=== PATIENT | female | born 1985 | race Asian ===

== ENCOUNTER 2018-05-30 23:14 | Emergency (ER) | payer SELFPAY ==
[~2018-05-30] VITALS: Ht 160 cm; Wt 49.9 kg
[2018-05-30 23:44] VITALS: BP 138/69
--- NOTE | 2018-05-30 23:44 | NUR ---
ED Nurse Note: Pt states she went to travel ([facility]) and had some food there. Pt states she had stomach gas, and now she feel painful in stomach. Pain level 5/10, and she feels light fever. pt denies nausesa vomiting, and diarrhea
[2018-05-30] MEDS ORDERED: Lidocaine 2% Visc 15ml soln ORAL ONE (23:45)
[2018-05-30] MEDS ORDERED: Metoclopramide 10mg/2ml Inj IVP ONE (23:45)
[2018-05-30] MEDS ORDERED: Mylanta II UD 30ml ORAL ONE (23:45)
[2018-05-30] MEDS ORDERED: Isovue-300 100ml vial INJ PRN (23:45)
--- NOTE | 2018-05-30 23:45 | Emergency Room Report ---
History of Present Illness General Chief Complaint: Abdominal Pain Source: Patient Present Illness HPI Patient presents with complaints of 3 days of epigastric abdominal pain and pressure Denies any vomiting she had some mild nausea Reports of the pain started after eating She feels that she has low-grade fevers intermittently Denies any lower abdominal pain denies any trauma denies any dysuria or frequency Allergies: Coded Allergies: No Known Allergies (Unverified , 05/30/18) Patient History Past Medical History: see triage record Pertinent Family History: none Last Menstrual Period: May 14, 2018 Now: No Reviewed Nursing Documentation: PMH: Agreed; PSxH: Agreed Nursing Documentation-PMH Past Medical History: No Stated History Review of Systems All Other Systems: negative except mentioned in HPI Physical Exam Vital Signs Date Time Temp Pulse Resp B/P (MAP) Pulse Ox O2 Delivery O2 Flow Rate FiO2 05/30/18 23:26 98.1 81 18 138/69 98 Room Air Sp02 EP Interpretation: reviewed, normal General Appearance: well appearing, no apparent distress Head: normocephalic, atraumatic Eyes: bilateral eye PERRL, bilateral eye EOMI ENT: hearing grossly normal, normal pharynx, TMs + canals normal, uvula midline Neck: full range of motion, supple, no meningismus, no bony tend Respiratory: lungs clear, normal breath sounds, no rhonchi, no respiratory distress, no retraction, no accessory muscle use Cardiovascular #1: normal peripheral pulses, regular rate, rhythm, no edema, no gallop, no JVD, no murmur Gastrointestinal: normal bowel sounds, non tender - However points to the epigastric area for discomfort, soft, no mass, no organomegaly, non-distended, no guarding, no hernia, no pulsatile mass, no rebound Genitourinary: no CVA tenderness Musculoskeletal: normal inspection Neurologic: oriented x3, responsive, pediatric intensive physician III-XII nml as tested, motor strength/ tone normal, sensory intact Psychiatric: mood/affect normal Skin: normal color, no rash, warm/dry, palpation normal Lymphatic: normal inspection, no adenopathy Medical Decision Making Diagnostic Impression: Primary Impression: Abdominal pain Additional Impression: Renal insufficiency ER Course With the patient's history and examination, multiple differentials considered, including but not limited to , ectopic , ovarian torsion, gastritis, cholecystitis, pancreatitis, appendicitis Patient's kidney function is somewhat abnormal CT imaging was done without contrast On the CT there is question of abnormality in the left femoral head area After discussing patient does report that she does have history of problem in that area After discussion patient also reports that she has kidney disease And is not supposed to take any medication that has any effect on the kidneys she was given a copy of her blood work including the elevated BUN/creatinine At this time abdomen remains soft and is stable for close outpatient follow-up Please note that after further discussion, patient reports that she had eaten a significant amount of ice, later on after eating dinner she felt discomfort to the epigastric region, currently feels improved Labs Test 05/30/18 23:50 White Blood Count 9.2 K/UL (4.8-10.8) Red Blood Count 4.09 M/UL (4.20-5.40) Hemoglobin 12.5 G/DL (12.0-16.0) Hematocrit 37.1 % (37.0-47.0) Mean Corpuscular Volume 91 FL (80-99) Mean Corpuscular Hemoglobin 30.5 PG (27.0-31.0) Mean Corpuscular Hemoglobin Concent 33.6 G/DL (32.0-36.0) Red Cell Distribution Width 11.5 % (11.6-14.8) Platelet Count 216 K/UL (150-450) Mean Platelet Volume 8.6 FL (6.5-10.1) Neutrophils (%) (Auto) 61.7 % (45.0-75.0) Lymphocytes (%) (Auto) 26.6 % (20.0-45.0) Monocytes (%) (Auto) 9.4 % (1.0-10.0) Eosinophils (%) (Auto) 1.6 % (0.0-3.0) Basophils (%) (Auto) 0.7 % (0.0-2.0) Urine HCG, Qualitative Negative (NEGATIVE) Sodium Level 138 MMOL/L (136-145) Potassium Level 3.9 MMOL/L (3.5-5.1) Chloride Level 103 MMOL/L (98-107) Carbon Dioxide Level 28 MMOL/L (21-32) Anion Gap 7 mmol/L (5-15) Blood Urea Nitrogen 26 mg/dL (7-18) Creatinine 1.6 MG/DL (0.55-1.30) Estimat Glomerular Filtration Rate 36.9 mL/min (>60) Glucose Level 89 MG/DL (74-106) Calcium Level 8.1 MG/DL (8.5-10.1) Total Bilirubin 0.2 MG/DL (0.2-1.0) Aspartate Amino Transf (AST/SGOT) 14 U/L (15-37) Alanine Aminotransferase (ALT/SGPT) 15 U/L (12-78) Alkaline Phosphatase 72 U/L (46-116) Total Protein 6.9 G/DL (6.4-8.2) Albumin 2.6 G/DL (3.4-5.0) Globulin 4.3 g/dL Albumin/Globulin Ratio 0.6 (1.0-2.7) Lipase 224 U/L (73-393) CT/MRI/US Diagnostic Results CT/MRI/US Diagnostic Results : Impression CT abdomen pelvis: Refer to report for full specific, anomaly to the left femoral neck, small cyst on the kidney no other acute pathology Last Vital Signs Date Time Temp Pulse Resp B/P (MAP) Pulse Ox O2 Delivery O2 Flow Rate FiO2 05/30/18 23:26 98.1 81 18 138/69 98 Room Air Status: improved Disposition: HOME, SELF-CARE Condition: Improved Scripts Famotidine (PEPCID AC) 20 Mg Tablet 20 MG PO DAILY, #10 TAB Prov: Emily Sommer DO 05/31/18 Additional Instructions: Patient is provided with the discharge instructions notified to follow up with primary doctor in the next 2-3 days otherwise return to the er with any worsening symptoms. Please note that this report is being documented using [employer] technology. This can lead to erroneous entry secondary to incorrect interpretation by the dictating instrument. Emily Sommer DO May 30, 2018 23:45
[2018-05-31 00:01] LABS: BASOPHILS % (AUTO) 0.7 % (0.0-2.0); EOSINOPHILS % (AUTO) 1.6 % (0.0-3.0); HEMATOCRIT 37.1 % (37.0-47.0); HEMOGLOBIN 12.5 G/DL (12.0-16.0); LYMPHOCYTES % (AUTO) 26.6 % (20.0-45.0); MEAN CORPUSCULAR VOLUME 91 FL (80-99); MONOCYTES % (AUTO) 9.4 % (1.0-10.0); NEUTROPHILS % (AUTO) 61.7 % (45.0-75.0); PLATELET COUNT 216 K/UL (150-450); RED BLOOD COUNT 4.09 M/UL (4.20-5.40); RED CELL DISTRIBUTION WIDTH 11.5 % (11.6-14.8); WHITE BLOOD COUNT 9.2 K/UL (4.8-10.8)
[2018-05-31] MEDS ORDERED: Metoclopramide 10mg/2ml Inj ONE (00:08)
[2018-05-31 00:12] LABS: ANION GAP 7 mmol/L (5-15); BLOOD UREA NITROGEN 26 mg/dL (7-18); CALCIUM 8.1 MG/DL (8.5-10.1); CARBON DIOXIDE 28 MMOL/L (21-32); CHLORIDE 103 MMOL/L (98-107); CREATININE 1.6 MG/DL (0.55-1.30); POTASSIUM 3.9 MMOL/L (3.5-5.1); SODIUM 138 MMOL/L (136-145)
[2018-05-31 00:17] LABS: ALANINE AMINOTRANSFERASE 15 U/L (12-78); ALBUMIN 2.6 G/DL (3.4-5.0); ALBUMIN/GLOBULIN RATIO 0.6 (1.0-2.7); ALKALINE PHOSPHATASE 72 U/L (46-116); ASPARTATE AMINO TRANSFERASE 14 U/L (15-37); BILIRUBIN,TOTAL 0.2 MG/DL (0.2-1.0)
--- NOTE | 2018-05-31 00:21 | NUR ---
ED Nurse Note: zach [phone]
[2018-05-31 01:29] VITALS: BP 126/77
--- NOTE | 2018-05-31 01:33 | NUR ---
ED Nurse Note: Pt asleep when visited, VSS.
[2018-05-31] MEDS ORDERED: PEPCID AC20 M2 PO (01:58)
--- NOTE | 2018-05-31 02:09 | NUR ---
ED Nurse Note: pt is d/c per ermd order, pt is aox4, on room air, with stable vital signs. pt was given dc and prescription instructions, pt was able to verbalize understanding, pt id band and iv site removed without complications. pt is able to ambulate with steady gait. pt took all belongings.
[2018-05-31 02:10] VITALS: BP 126/77
--- NOTE | 2018-05-31 17:38 | Diagnostic Imaging Report ---
Indication: Abdominal pain for 3 days Technique: Spiral acquisitions obtained through the abdomen and pelvis. No oral contrast utilized, per emergency room physician request No IV contrast utilized, per referring physician request.. Multiplanar reconstructions were generated. Total dose length product 458.17 mGycm. CTDIvol(s) 9.13 mGy. Dose reduction achieved using automated exposure control Comparison: None Findings: The appendix is probably normal. No evidence of diverticulosis or diverticulitis. No small bowel distention. There is equivocal trace free fluid in the pelvis. No free or loculated intraperitoneal gas or fluid is evident otherwise. Distal esophagus, stomach, duodenum are unremarkable. Lack of IV contrast limits assessment of the solid organs. The liver, gallbladder, bile ducts, pancreas, spleen, adrenals are unremarkable. The left kidney demonstrates a cyst in the lower pole. This demonstrates a small peripheral calcification. The right kidney is unremarkable. No renal or ureteral calculi, hydronephrosis, or hydroureter. Uterus and ovaries are unremarkable. No pelvic mass or adenopathy. The included lung bases are clear. Left hip demonstrates irregularity of the articular surface, subchondral sclerosis and subchondral cysts and very slight collapse. Impression: No acute abdominal or pelvic process Abnormal left hip, findings suspicious for avascular necrosis Equivocal trace free pelvic fluid, presumably physiologic if real Incidental finding left renal cyst This agrees with the preliminary interpretation provided overnight by [facility] teleradiology service. The CT scanner at [facility] is accredited by the [employer] and the scans are performed using protocols designed to limit radiation exposure to as low as reasonably achievable to attain images of sufficient resolution adequate for diagnostic evaluation.
== END 2018-05-31 02:15 | disposition home or self-care (01) ==
LOC: EMR 23:53
DX: R10.13 Epigastric pain (principal); N28.9 Disorder of kidney and ureter, unspecified; N28.1 Cyst of kidney, acquired
CPT/HCPCS: 36415; 74176; 80053; 81025; 83690; 85025; 96361; 96374; 99284; J2765